=== PATIENT | male | born 1995 | race Caucasian/White ===

== ENCOUNTER 2024-04-23 10:00 | Emergency (ER) | payer OTHER, SELFPAY ==
--- NOTE | 2024-04-23 10:04 | ED.URI ---
HPI - URI/Sore Throat General Chief Complaint: Upper Respiratory Infection Stated Complaint: Upper Respiratory Symptoms Source: patient and RN notes reviewed Mode of arrival: ambulatory Limitations: no limitations History of Present Illness HPI Narrative: Patient is a 29-year-old male who presents to the [facility] with complaints of congestion and bilateral ear pain. 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 He states that he had some nasal congestion and drainage the beginning of the trip. He states that on day 5 he started having right ear pain. On day 6, both ears caused him discomfort. He denies ear drainage. Denies recent fevers. Related Data Allergies Allergy/AdvReac Type Severity Reaction Status Date / Time shellfish derived Allergy Severe Anaphylaxis Verified 04/23/24 10:22 Penicillins Allergy Unknown Unknown Verified 04/23/24 10:22 Review of Systems Review of Systems: CONSTITUTIONAL: Denies fever, chills, or sweats. EYES: Denies visual changes, redness, or discharge. ENT: Reports otalgia but denies sore throat. Reports nasal congestion. CARDIOVASCULAR: Denies chest pain, palpitations, or edema. RESPIRATORY: Denies cough or dyspnea. GASTROINTESTINAL: Denies abdominal pain, nausea, vomiting, or diarrhea. GENITOURINARY: Denies dysuria or hematuria. SKIN: Denies rash or itching. MUSCULOSKELETAL: Denies back pain, joint pain, or myalgia. NEUROLOGIC: Denies headache, numbness, or weakness. Pertinent positives per HPI. PMFSH Comments At the time of my signature, I reviewed and agree with the nursing past medical, surgical, social, and family history. There is no relevant family history pertinent to the patient complaint. Exam Narrative: GENERAL: This is a well-nourished, well-developed patient, in no apparent distress. HEAD: normocephalic, atraumatic. EYES: Sclera clear/white. Vision is grossly intact. EARS: External ears normal, auditory canals clear and without drainage. Bilateral TMS erythematous and bulging. Hearing grossly intact. NOSE: External nose normal. + nasal congestion. THROAT: Mucous membranes moist, posterior pharynx clear. NECK: Neck supple, non-tender without lymphadenopathy, masses or thyromegaly. CARDIOVASCULAR: Regular rate and rhythm without murmurs, gallops, or rubs. RESPIRATORY: Clear to auscultation. Breath sounds equal bilaterally. No wheezes, rales, or rhonchi. GASTROINTESTINAL: Abdomen soft, non-tender, nondistended. Bowel sounds are active. No hepato-splenomegaly, or palpable masses. No guarding. SKIN: warm, intact with no suspicious lesions or rash, good texture and turgor. NEURO: awake, alert, and oriented to person, place and time. There were no obvious focal neurologic abnormalities. Course Course Level of Care: Express Care Visit Vital Signs Vital signs: Vital Signs Temperature 98 F 04/23/24 10:18 Pulse Rate 78 04/23/24 10:18 Respiratory Rate 18 04/23/24 10:18 Blood Pressure 142/84 H 04/23/24 10:18 Pulse Oximetry 100 04/23/24 10:18 Temperature 98 F 04/23/24 10:18 Pulse Rate 78 04/23/24 10:18 Respiratory Rate 18 04/23/24 10:18 Blood Pressure 142/84 H 04/23/24 10:18 Pulse Oximetry 100 04/23/24 10:18 Reviewed MDM - URI/Sore Throat MDM Narrative Medical decision making narrative: Take antibiotics as directed. May given ibuprofen and/or Tylenol as needed for pain and/or fever. Follow up with primary care provider in 7-10 days to have ear rechecked. Differential Diagnosis Differential diagnosis: Likely upper respiratory infection, otitis media, sinusitis and viral infection Critical Care Time Critical Care Time Critical Care Time: No Discharge Plan Discharge Clinical Impression: Bilateral acute otitis media Patient Disposition: Home, Self-Care Condition: Stable Instructions: Antibiotic Form, Ear Infection (ED) Additional Instructions: Take antibiotics as directed. May given ibuprofen and/or Tylenol as needed for pain and/or fever. Follow up with primary care provider in 7-10 days to have ear rechecked. Patient Language: Georgian Prescriptions: New cefdinir 300 mg capsule 300 mg PO Q12H 10 Days Qty: 20 0RF fluticasone propionate [Flonase Allergy Relief] 50 mcg/actuation spray,suspension 1 spray intranasal BID Qty: 16 0RF Rx Instructions: administer into each nostril Follow-up/Referrals: UNKNOWN,DOCTOR [Non-Staff] - Time of Disposition: 10:26
[2024-04-23 10:18] VITALS: BP 142/84; PULSE 78; RESP 18; TEMP 36.6; O2SAT 100
== END 2024-04-23 10:30 | disposition home or self-care (01) ==
PROVIDERS: Emergency Provider Nurse Practitioner
DX: H66.93 Otitis media, unspecified, bilateral (principal)
CPT/HCPCS: 99203; G0463